=== PATIENT | female | born 1970 | race Caucasian/White ===

== ENCOUNTER 2017-01-06 13:59 | Emergency (ER) | payer MEDICAID, OTHER ==
[~2017-01-06] VITALS: Ht 170.2 cm; Wt 63.0 kg
--- NOTE | 2017-01-06 14:00 | NUR ---
PT BIBRA FROM HOME TO ER BED 10. PER REPORT, PT TRIED TO OVERDOSE ON PILLS AND [place] LAST NIGHT AT 6PM FOR AN ATTEMPTED SUICIDE. PT IS AWAKE, VERBALLY RESPONSIVE. 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 ON MONITOR W/ STABLE VITALS. PT'S FACE IS COVERED W/ DRIED REDDISH LIQUID STATING SHE MIGHT HAVE VOMITTED THE [place]. AWAITING MD SCHUSTER.
--- NOTE | 2017-01-06 14:11 | NUR ---
DR DEGROOT AT BEDSIDE FOR EVAL.
[2017-01-06 14:19] LABS: BASOPHILS % (AUTO) 0.4 % (0.0-2.0); EOSINOPHILS # (AUTO) 0.1 /CMM (0.0-0.7); EOSINOPHILS % (AUTO) 0.7 % (0.0-6.0); HEMATOCRIT 41 % (33-45); HEMOGLOBIN 13.4 g/dL (11.5-14.8); LYMPHOCYTES # (AUTO) 2.5 /CMM (0.8-4.8); LYMPHOCYTES % (AUTO) 21.1 % (20.0-44.0); MEAN CORPUSCULAR HEMOGLOBIN 28 PG (26.0-33.0); MEAN CORPUSCULAR HGB CONC 33 g/dl (31.0-36.0); MEAN CORPUSCULAR VOLUME 86 fL (82-100); MONOCYTES # (AUTO) 0.4 /CMM (0.1-1.30); MONOCYTES % (AUTO) 3.2 % (2.0-12.0); NEUTROPHILS # (AUTO) 8.7 /CMM (1.8-8.9); NEUTROPHILS % (AUTO) 74.6 % (43.0-81.0); PLATELET COUNT (AUTO) 236 /CMM (150-450); RDW COEFFICIENT OF VARIATION 13.7 (11.5-15.0); RED BLOOD CELL COUNT(AUTO) 4.75 MIL/uL (4.0-5.2); WHITE BLOOD COUNT (AUTO) 11.7 K/uL (4.3-11.0)
--- NOTE | 2017-01-06 14:20 | NUR ---
0SPOKE WITH MILI FROM POISON CONTROL WITH FF. RECOMMENDATIONS: LABS.,ASPIRIN,TYLENOL,ALCOHOL LEVEL,LFT'S,CHEMISTRY IF TYLENOL LEVEL IS ABOVE 10 OR LFT"S ARE ABNORMAL,GIVE MUCOMIST
[2017-01-06] MEDS ORDERED: IV NS 0.9% 1,000 ML BAG IV ONE (14:30)
--- NOTE | 2017-01-06 14:30 | NUR ---
PT UNABLE TO PROVIDE URINE SAMPLE AT THIS TIME. STATES NOT . WILLING TO SIGN WAIVER. RADIOLOGY AWARE.
--- NOTE | 2017-01-06 14:35 | NUR ---
RADIOLOGY AT BEDSIDE FOR CHEST XRAY.
[2017-01-06 14:38] LABS: ALANINE AMINOTRANSFERASE 33 U/L (12-78); ALBUMIN 3.9 g/dL (3.4-5.0); ALCOHOL, BLOOD < 3 mg/dL (0-0); ALKALINE PHOSPHATASE 55 U/L (46-116); ASPARTATE AMINOTRANSFERASE 28 U/L (15-37); BILIRUBIN,DIRECT 0.1 mg/dL (0.0-0.2); BILIRUBIN,TOTAL 0.5 mg/dL (0.2-1.0); CALCIUM, SERUM 9.1 mg/dL (8.5-10.1); CARBON DIOXIDE 21 mmol/L (21-32); CHLORIDE 106 mmol/L (98-107); GLUCOSE 74 mg/dL (74-106); SODIUM SERUM 139 mmol/L (136-145); TOTAL PROTEIN, SERUM 7.6 g/dL (6.4-8.2); UREA NITROGEN, BLOOD 17 mg/dL (7-18)
[2017-01-06 14:43] LABS: INR 0.91 (0.87-1.13); PROTHROMBIN TIME 9.5 SECS (9.5-12.7)
[2017-01-06 15:06] LABS: SALICYLATE 1.2 mg/dL (2.8-20.0)
[2017-01-06 15:07] LABS: ACETAMINOPHEN < 2 ug/ml (10-30)
[2017-01-06 15:31] LABS: TROPONIN I < 0.017 ng/mL (0.00-0.056)
[2017-01-06 15:55] LABS: APPEARANCE,URINE Clear (CLEAR); BILIRUBIN,URINE Negative (NEGATIVE); BLOOD, URINE Negative Ery/uL (NEGATIVE); COLOR,URINE Yellow (YELLOW); KETONES,URINE 40 (NEGATIVE); LEUKOCYTE ESTERASE ,URINE Trace (NEGATIVE); NITRITE, URINE Negative (NEGATIVE); PROTEIN,URINE Negative (NEGATIVE); UGLUCOSE Negative (NEGATIVE); UROBILINOGEN,URINE 0.2 EU/dL (0.2)
[2017-01-06 16:04] LABS: BACTERIA,URINE Many /HPF (None Seen); RBC,URINE 0-2 /HPF (0-2)
[2017-01-06 16:05] LABS: SQUAMOUS EPITHELIAL CELL,UR Moderate /HPF (None Seen)
--- NOTE | 2017-01-06 16:27 | NUR ---
PT RESTING. AWAKE. DENIES ANY DISCOMFORT. BROTHER AT BEDSIDE.
--- NOTE | 2017-01-06 16:58 | NUR ---
ART DIGITAL PHOTO PRINTER AT BEDSIDE FOR PSYCH EVAL.
--- NOTE | 2017-01-06 19:43 | NUR ---
MEDICALLY AND PSYCH CLEARED. PT DICHARGE HOME. BROTHER TO CHERRY SORTER. DENIES SI/HI. D/C HOME IN STABLE CONDITION.
[2017-01-06 19:46] VITALS: BP 128/84
== END 2017-01-06 19:48 | disposition home or self-care (01) ==
LOC: ER 14:01
DX: T42.6X2A Poisoning by other antiepileptic and sedative-hypnotic drugs, intentional self-harm, initial encounter (principal); T42.4X2A Poisoning by benzodiazepines, intentional self-harm, initial encounter; F32.9 Major depressive disorder, single episode, unspecified; R79.1 Abnormal coagulation profile; R82.99 Other abnormal findings in urine; Y92.89 Other specified places as the place of occurrence of the external cause
CPT/HCPCS: 36415; 71010; 80048; 80076; 80305; 80329; 81001; 84484; 84703; 85025; 85730; 87086; 93005; 99285; A4606; G0480 ×2; J7030; Z7610; 81000-TC